=== PATIENT | female | born 1955 | race Native Hawaiian/Other Pacific Islander ===

== ENCOUNTER 2024-07-20 09:26 | Emergency (ER) | payer OTHER ==
--- OUTSIDE RECORDS SUMMARY | 2024-07-20 09:29 | XMS REPORT | Continuity of Care Document ---
Author Name Unknown Address [address] [place] [address] [facility] Address [address] [place] [address] Care Team Providers Care Nursing Department Chairperson Name Role Phone Paul Eubanks Attending Clinician Unavailable Encounters Start Date/Time End Date/Time Encounter Type Admission Type Attending Clinicians Care Facility Care Department Encounter ID Source 2024-06-24 13:44:01 Outpatient Paul Eubanks [facility] [id number] [facility]
--- NOTE | 2024-07-20 09:49 | EDPHYS ---
Physician Documentation [facility] Name: Rupert Chavez Age: 69 yrs Sex: Female : 1955 Arrival Date: 07/20/2024 Time: 09:26 Bed 15 Private MD: ED Physician Jackson Aleman HPI: 07/20 09:50 This 69 yrs old Female presents to ER via Unassigned with complaints of Poison Kirstin. rt 09:50 Patient presents to the ED with itchy rash following poison kirstin exposure about 1 week rt ago. Reports a rash to the face, bilateral arms. Denies difficulty breathing, tongue swelling. Denies other acute complaints at this time. Gets relief of urticaria with Benadryl. Symptoms are mild in severity, no other aggravating or alleviating factors.. Historical: - Allergies: :52 No Known Allergies; db - PMHx: :52 None; db - PSHx: :52 None; db - Immunization history:: Adult Immunizations unknown. - Infectious Disease History:: Denies. - Family history:: not pertinent. - Social history:: Smoking status: Patient denies any tobacco usage or history of. ROS: 09:50 Constitutional: Negative for fever, chills, and weight loss, Cardiovascular: Negative rt for chest pain, palpitations, and edema, Respiratory: Negative for shortness of breath, cough, wheezing, and pleuritic chest pain, Abdomen/GI: Negative for abdominal pain, nausea, vomiting, diarrhea, and constipation, Neuro: Negative for headache, weakness, numbness, tingling, and seizure, 09:50 Skin: Positive for rash, Urticaria, Exam: 09:50 Constitutional: This is a well developed, well nourished patient who is awake, alert, rt and in no acute distress. Head/Face: Normocephalic, atraumatic. Chest/axilla: Normal chest wall appearance and motion. Nontender with no deformity. No lesions are appreciated. Cardiovascular: Regular rate and rhythm with a normal S1 and S2. No gallops, murmurs, or rubs. Normal PMI, no JVD. No pulse deficits. Respiratory: Lungs have equal breath sounds bilaterally, clear to auscultation and percussion. No rales, rhonchi or wheezes noted. No increased work of breathing, no retractions or nasal flaring. Abdomen/GI: Soft, non-tender, with normal bowel sounds. No distension or tympany. No guarding or rebound. No evidence of tenderness throughout. MS/ Extremity: Pulses equal, no cyanosis. Neurovascular intact. Full, normal range of motion. Neuro: Awake and alert, GCS 15, oriented to person, place, time, and situation. Cranial nerves II-XII grossly intact. Motor strength 5/5 in all extremities. Sensory grossly intact. Cerebellar exam normal. Normal gait. 09:50 ENT: No oropharyngeal edema. 09:50 Skin: Rash consistent with contact dermatitis on bilateral forearms, left side of the face, does not appreciably warm, no drainable abscess or signs of cellulitis. Vital Signs: 09:35 BP 124 / 86; Pulse 67; Resp 16; Temp 98.6(O); Pulse Ox 100% on R/A; Weight 50.35 kg; db Height 5 ft. 2 in. ; 10:16 BP 119 / 81; Pulse 70; Resp 18; Temp 98.6; Pulse Ox 100% on R/A; Pain 0/10; tm6 09:35 Body Mass Index 20.30 (50.35 kg, 157.48 cm) db 10:16 Pain Scale: Adult tm6 MDM: 09:38 Patient medically screened. rt 09:53 Differential Diagnosis Contact dermatitis. Data reviewed: vital signs, nurses notes. I rt considered the following discharge prescriptions or medication management in the emergency department Medications were administered in the Emergency Department. See MAR. Test considered but Not performed: Labs: Stable vital signs, no signs of cellulitis, infection, labs are not indicated. Counseling: I had a detailed discussion with the patient and/or guardian regarding the historical points, exam findings, and any diagnostic results supporting the discharge/admit diagnosis, the need for outpatient follow up, to return to the emergency department if symptoms worsen or persist or if there are any questions or concerns that arise at home. Administered Medications: 10:15 Drug: Dexamethasone IM 10 mg IM once Route: IM; Site: right deltoid; tm6 10:15 Follow up: Response: Medication administered at discharge. tm6 Disposition Summary: 07/20/24 09:48 Discharge Ordered Notes: Location: Home rt Problem: new rt Symptoms: are unchanged rt Condition: Stable rt Diagnosis - Allergic contact dermatitis due to plants, except food rt Followup: rt - With: Private Physician - When: 2 - 3 days - Reason: Discharge Instructions: - Discharge Summary Sheet rt - Poison Kirstin Dermatitis rt Forms: - Medication Reconciliation Form rt - Antibiotic Education rt - Prescription Opioid Use rt - Patient Portal Instructions rt - Leadership Thank You Letter rt Prescriptions: - Medrol (Tashi) 4 mg Oral Tablets, Dose Pack - take 1 tablet ORAL route as directed - follow package instructions; 1 packet; rt Refills: 0, Product Selection Permitted Signatures: Erica Palacios, RN RN db Jackson Aleman MD MD rt Alisha Bush RN RN tm6
[2024-07-20] MEDS ORDERED: dexAMETHasone 10 MG/ML VIAL ONE (10:05)
--- NOTE | 2024-07-20 10:19 | ER ---
Nurse's Notes [facility] Name: Rupert Chavez Age: 69 yrs Sex: Female : 1955 Arrival Date: 07/20/2024 Time: 09:26 Bed 15 Private MD: Diagnosis: Allergic contact dermatitis due to plants, except food Presentation: 07/20 09:35 Chief complaint: Patient states: RASH ON FACE, HANDS AND TORSO FROM POISON BRITTANY FROM db LAST Saturday07/12/2024. Coronavirus screen: Client denies travel out of the [place] in the last 14 days. At this time, the client does not indicate any symptoms associated with coronavirus-19. Ebola Screen: Patient negative for fever greater than or equal to 101.5 degrees Fahrenheit, and additional compatible Ebola Virus Disease symptoms Patient denies exposure to infectious person. Patient denies travel to an Ebola-affected area in the 21 days before illness onset. No symptoms or risks identified at this time. Initial Sepsis Screen: Does the patient meet any 2 criteria? No. Patient's initial sepsis screen is negative. Does the patient have a suspected source of infection? No. Patient's initial sepsis screen is negative. Risk Assessment: Do you want to hurt yourself or someone else? Patient reports no desire to harm self or others. Onset of symptoms was July 12, 2024. 09:35 Method Of Arrival: Ambulatory db 09:35 Acuity: MIGUEL 4 db Triage Assessment: 09:35 General: Appears in no apparent distress. comfortable, Behavior is calm, cooperative. db Pain: Complains of pain in face, abdomen and right arm. Neuro: Level of Consciousness is awake, alert, obeys commands, Oriented to person, place, time, situation. Derm: Rash noted that is itchy. Historical: - Allergies: 09:52 No Known Allergies; db - PMHx: 09:52 None; db - PSHx: 09:52 None; db - Immunization history:: Adult Immunizations unknown. - Infectious Disease History:: Denies. - Family history:: not pertinent. - Social history:: Smoking status: Patient denies any tobacco usage or history of. Screenin:16 [facility] ED Fall Risk Assessment (Adult) History of falling in the last 3 months, tm6 including since admission No falls in past 3 months (0 pts) Confusion or Disorientation No (0 pts) Intoxicated or Sedated No (0 pts) Impaired Gait No (0 pts) Mobility Assist Device Used No (0 pt) Altered Elimination No (0 pt) Score/Fall Risk Level 0 - 2 = Low Risk Oriented to surroundings, Maintained a safe environment, Educated pt \T\ family on fall prevention, incl call for assistance when getting out of bed. Abuse screen: Denies threats or abuse. Denies injuries from another. Nutritional screening: No deficits noted. Tuberculosis screening: No symptoms or risk factors identified. Assessment: 10:16 General: Appears in no apparent distress. Behavior is calm, cooperative. Pain: Denies tm6 pain. Neuro: Level of Consciousness is awake, alert, obeys commands, Oriented to person, place, time, situation. Cardiovascular: Patient's skin is warm and dry. Respiratory: Airway is patent Respiratory effort is even, unlabored, Respiratory pattern is regular, symmetrical. GI: No signs and/or symptoms were reported involving the gastrointestinal system. Abdomen is flat, non-distended. : No signs and/or symptoms were reported regarding the genitourinary system. EENT: No signs and/or symptoms were reported regarding the EENT system. Derm: Rash noted that is red, raised, arms, forehead Reports increased itching. Musculoskeletal: No signs and/or symptoms reported regarding the musculoskeletal system. Vital Signs: 09:35 BP 124 / 86; Pulse 67; Resp 16; Temp 98.6(O); Pulse Ox 100% on R/A; Weight 50.35 kg; db Height 5 ft. 2 in. ; 10:16 BP 119 / 81; Pulse 70; Resp 18; Temp 98.6; Pulse Ox 100% on R/A; Pain 0/10; tm6 09:35 Body Mass Index 20.30 (50.35 kg, 157.48 cm) db 10:16 Pain Scale: Adult tm6 ED Course: 09:30 Patient arrived in ED. mr 09:30 Jackson Aleman MD is Attending Physician. rt 09:35 Arm band placed on Patient placed in an exam room. db 09:39 Erica Palacios, RN is Primary Nurse. db 09:50 Triage completed. db 10:16 Patient has correct armband on for positive identification. Provided Education on: use tm6 of prescription medication. 10:16 No provider procedures requiring assistance completed. Patient did not have IV access tm6 during this emergency room visit. Administered Medications: 10:15 Drug: Dexamethasone IM 10 mg IM once Route: IM; Site: right deltoid; tm6 10:15 Follow up: Response: Medication administered at discharge. tm6 Medication: 10:16 VIS not applicable for this client. tm6 Outcome: 09:48 Discharge ordered by MD. rt 10:16 Discharged to home ambulatory, with family, tm6 10:16 Condition: stable 10:16 Discharge instructions given to patient, family, Instructed on discharge instructions, follow up and referral plans. medication usage, Demonstrated understanding of instructions, follow-up care, medications, Prescriptions given X 1, 10:18 Patient left the ED. tm6 Signatures: Jane Bowman Reg Reg mr Erica Palacios, RN RN db Jackson Aleman MD MD rt Alisha Bush RN RN tm6 Corrections: (The following items were deleted from the chart) 09:50 09:35 Onset of symptoms was July 20, 2024 db db
[2024-07-20 10:23] VITALS: TEMP 98.6; O2SAT 100
[2024-07-20 10:25] VITALS: BP 119/81
== END 2024-07-20 10:18 | disposition home or self-care (01) ==
LOC: ER 09:26
DX: L23.7 Allergic contact dermatitis due to plants, except food (principal)
CPT/HCPCS: 96372; 99284; J1100